=== PATIENT | female | born 1930 | race Caucasian/White ===

== ENCOUNTER → 2017-05-01 | Outpatient (CLI) | payer MEDICARE, OTHER ==
[~2017-05-01] MED LIST: ACET325 PO; ACET500 PO; ALBU90OI INH; ALBU90OI6 INH; AMLO5 PO; ARTTEAOPSB BOTHEYES; ASCO500 PO; ATEN25 PO; BISA10S PR; CALCARB PO; CALCAVITD PO; CALCIUM + D3 E1 EACH PO; CEPH500 PO; CIPR250 PO; CLAR500 PO; COMPAZINE10 MG PO; CVS GLUCOSAMIN PO; DIPASPER PO; DOCU100 PO; DULERA 100 MCG/13 GM INH; FERR325 PO; FLUO10 PO; FLUO20 PO; GLUC500 PO; GLUCHON PO; GLYCAS PR; GUAI600T33 PO; Glucosamine H1500 MG PO; IBUP600 PO; IRON325 MG PO; LAVAP17G PO; LEVFLO250 PO; LISI5 PO; LOPE2C PO; LORA.5 PO; LOVA20 PO; MAGOXI400 PO; METR500 PO; MOM PO; Norco 5-325 Ta1 EACH PO; OMEP20ER PO; OMEPRAZOLE MAGN20 MG PO; ONDA4ODT MM; OXYACE5T PO; OXYC5 PO; Omeprazole20 M1 PO; POLY17UD PO; PROBIOTIC; PROM25 PO; Prozac20 MG PO; SEPTRA DS PO; Valium5 MG PO; ZOLP10 PO; Zofran Odt4 MG PO; calcium carbonate
[2017-05-02 15:59] LABS: Bilirubin, Urine Neg (Neg); Blood, Urine 1+ (Neg); Glucose Qualitative, Urine Neg (Neg); Ketones, Urine Neg (Neg); Leukocyte Esterase, Urine Neg (Neg); Nitrite, Urine Neg (Neg); Protein, Urine 2+ (Neg); Urobilinogen, Urine NORM (Normal)
[2017-05-02 16:29] LABS: Appearance, Urine Clear (Clear); Color, Urine Yellow (P-Yellow)
[2017-05-02 16:32] LABS: Bacteria Few /hpf; Calcium Oxalate Crystals Mod /hpf; Squamous Epithelial Cells Few /hpf (Few); White Blood Cells, Urine 0-2 /hpf (0-5)
== END ==
LOC: LAB 15:14
PROVIDERS: Family Medicine
DX: N39.0 Urinary tract infection, site not specified (principal)
CPT/HCPCS: 81001

== ENCOUNTER → 2017-11-29 | Outpatient (CLI) | payer MEDICARE, OTHER ==
[2017-11-29 15:09] LABS: Bilirubin, Urine Neg (Neg); Blood, Urine Neg (Neg); Glucose Qualitative, Urine Neg (Neg); Ketones, Urine Neg (Neg); Leukocyte Esterase, Urine 1+ (Neg); Nitrite, Urine Neg (Neg); Protein, Urine 2+ (Neg); Specific Gravity, Urine 1.025 (1.003-1.022); Urobilinogen, Urine NORM (Normal)
[2017-11-29 15:15] LABS: Appearance, Urine Hazy (Clear); Color, Urine Yellow (P-Yellow)
[2017-11-29 15:16] LABS: Bacteria Many /hpf; Squamous Epithelial Cells Many /hpf (Few)
[2017-11-29 15:17] LABS: Calcium Oxalate Crystals Mod /hpf; Red Blood Cells, Urine Not Seen /hpf (0-2); White Blood Cells, Urine 0-2 /hpf (0-5)
== END ==
LOC: LAB SHORT 13:26 → LAB 13:26
PROVIDERS: Family Medicine
DX: N39.0 Urinary tract infection, site not specified (principal)
CPT/HCPCS: 81001; 87086